=== PATIENT | male | born 1940 | race Caucasian/White ===

== ENCOUNTER 2017-06-16 13:05 | Emergency (ER) | payer MEDICARE, OTHER ==
[~2017-06-16 13:05] MED LIST: Iopamidol 370 76% 100 ML VIAL ONE
[2017-06-16 14:19] LABS: Hemoglobin 14.3 g/dL (14.0-18.0); Mean Corpuscular HGB CONC 33.2 g/dL (32.0-36.0); Mean Corpuscular Hemoglobin 31.3 pg (27.0-31.0); Mean Corpuscular Volume 94.5 fl (80.0-94.0); Mean Platelet Volume 7.7 fL (7.4-10.4); Platelet Count 229 thou/uL (130-400); RBC Distribution Width 11.7 % (11.5-14.5); Red Blood Cell (RBC) Count 4.55 mill/uL (4.70-6.10); White Blood Cell (WBC) Count 6.8 thou/uL (4.8-10.8)
[2017-06-16 14:26] LABS: MDiff Complete? YES; Manual Diff?? YES
[2017-06-16 14:27] LABS: ALT (SGPT) 14 U/L (8-55); AST (SGOT) 21 U/L (5-34); Albumin 4.1 g/dL (3.4-4.8); Alkaline Phosphatase 86 U/L (40-150); Anion Gap 16 mmol/L (10-20); Anisocytosis SLIGHT = 6-15 cells (100X) (0-5/hpf); BUN (Urea Nitrogen) 21 mg/dL (8.4-25.7); Band 2 % (5-11); Bilirubin, Total 0.5 mg/dL (0.2-1.2); Calc. Creatinine Clearance 0 mL/min (70-130); Calcium 9.7 mg/dL (7.8-10.44); Carbon Dioxide 22 mmol/L (23-31); Chloride 104 mmol/L (98-107); Eosinophils 2 % (0-10); Estimated GFR-MDRD 73; Globulin 3.3 g/dL (2.4-3.5); Glucose 90 mg/dL (83-110); Lymphocytes 12 % (21-51); Monocytes 11 % (0-10); Neutrophil 73 % (42-75); PLT Morphology Comment Appears Adequate; Potassium 4.4 mmol/L (3.5-5.1); Protein, Total 7.4 g/dL (5.8-8.1); Sodium 138 mmol/L (136-145)
[2017-06-16 14:48] LABS: Bilirubin Negative (Negative); Blood, Urine Negative (Negative); Clarity Clear (Clear); Glucose, Urine (Dipstick) Negative (Negative); Leukocyte Negative (Negative); Nitrite Negative (Negative); Protein, Urine (Dipstick) Negative (Neg-Trace); Urobilinogen 0.2 mg/dL (0.2-1.0)
[2017-06-16 14:50] LABS: Specific Gravity, Urine 1.003 (1.002-1.036)
--- NOTE | 2017-06-16 15:08 | CT ---
CT OF THE ABDOMEN AND PELVIS WITH IV CONTRAST: INDICATION: Left lower quadrant abdominal pain. COMPARISON: Prior CTA of the chest and abdomen dated 05/17/16. 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 There is a large hiatal hernia. There is bibasilar atelectasis. There are calcified granuloma involving the spleen. There is a 3.6 cm cyst involving the inferior pole of the left kidney. Adrenal glands and pancreas are unremarkable. There is wall thickening and pericolonic inflammatory stranding involving the distal descending colon . No drainable fluid collection is grossly evident. No free air is evident. The prostate is enlarg ed. The rectum and perirectal soft tissues are unremarkable. No definite acute osseous abnormality is evident. There is scattered degenerative change. IMPRESSION: 1. Findings suspicious for acute colonic diverticulitis of the descending colon without evidence of gross complication. Recommend appropriate colon screening after abatement of the patient's current c linical symptoms. 2. Left renal cyst. 3. Findings of prior granulomatous disease. 4. Large hiatal hernia. 5. Other chronic findings as above. POS: [facility]
== END 2017-06-16 15:15 | disposition home or self-care (01) ==
LOC: MADERS 13:05
DX: K57.92 Diverticulitis of intestine, part unspecified, without perforation or abscess without bleeding (principal); R35.0 Frequency of micturition; E03.9 Hypothyroidism, unspecified; F32.9 Major depressive disorder, single episode, unspecified; I49.9 Cardiac arrhythmia, unspecified
CPT/HCPCS: 74177; 80053; 81003; 85025

== ENCOUNTER 2017-06-23 12:25 | Outpatient (CLI) | payer MEDICARE, OTHER ==
[2017-06-23 13:01] LABS: ALT (SGPT) 20 U/L (8-55); AST (SGOT) 28 U/L (5-34); Albumin 4.1 g/dL (3.4-4.8); Alkaline Phosphatase 69 U/L (40-150); Anion Gap 15 mmol/L (10-20); BUN (Urea Nitrogen) 16 mg/dL (8.4-25.7); Bilirubin, Total 0.3 mg/dL (0.2-1.2); Calc. Creatinine Clearance 0 mL/min (70-130); Calcium 9.9 mg/dL (7.8-10.44); Carbon Dioxide 24 mmol/L (23-31); Chloride 107 mmol/L (98-107); Estimated GFR-MDRD 75; Globulin 3.2 g/dL (2.4-3.5); Glucose 95 mg/dL (83-110); Potassium 4.4 mmol/L (3.5-5.1); Protein, Total 7.3 g/dL (5.8-8.1); Sodium 142 mmol/L (136-145)
[2017-06-23 13:12] LABS: Band 1 % (5-11); Eosinophils 1 % (0-10); Hemoglobin 15.2 g/dL (14.0-18.0); Lymphocytes 18 % (21-51); MDiff Complete? YES; Mean Corpuscular HGB CONC 32.5 g/dL (32.0-36.0); Mean Corpuscular Hemoglobin 30.7 pg (27.0-31.0); Mean Corpuscular Volume 94.4 fl (80.0-94.0); Mean Platelet Volume 7.3 fL (7.4-10.4); Monocytes 3 % (0-10); Neutrophil 77 % (42-75); PLT Morphology Comment Appears Adequate; Platelet Count 306 thou/uL (130-400); RBC Distribution Width 11.4 % (11.5-14.5); Red Blood Cell (RBC) Count 4.95 mill/uL (4.70-6.10)
--- NOTE | 2017-06-23 14:02 | RAD ---
RIGHT FOOT 3 VIEWS: HISTORY: Foot pain. FINDINGS: There are some arthritic changes of the 1st metatarsal phalangeal joint. Some minimal ossification i s seen at the Achilles tendon insertion. There are no signs of fracture or other findings. IMPRESSION: No acute findings. POS: [facility]
[2017-06-23 17:54] LABS: Free T4 (Free Thyroxine) 1.37 ng/dL (0.70-1.48)
[2017-06-23 17:55] LABS: PSA-Symptomatic (DIAGNOSTIC) 4.17 ng/mL (0-4.0)
== END 2017-06-23 12:26 | disposition home or self-care (01) ==
LOC: MADLABBHPM 12:25
PROVIDERS: ATTEND Family Medicine
DX: M79.671 Pain in right foot (principal); E03.8 Other specified hypothyroidism; K57.20 Diverticulitis of large intestine with perforation and abscess without bleeding; N40.1 Benign prostatic hyperplasia with lower urinary tract symptoms
CPT/HCPCS: 36415; 80050; 84153; 84439

== ENCOUNTER 2019-05-12 13:51 | Emergency (ER) | payer MEDICARE ==
[~2019-05-12 13:51] MED LIST changes: -Iopamidol 370 76% 100 ML VIAL ONE; +Sodium Chloride Irrig Solution 250 ML BOT ONE
[2019-05-12] MEDS ORDERED: Lidocaine 1% (PF) 30 ML VIAL ONE (14:14)
[2019-05-12] MEDS ORDERED: Lidocaine 1% 20 ML MDV ONE (14:17)
[2019-05-12] MEDS ORDERED: Lidocaine 1% w/Epinephrine 1:100K 20 ML VIAL ONE (14:19)
--- NOTE | 2019-05-12 14:31 | RAD ---
EXAM: 3 views of the left middle finger HISTORY: Finger pain after injury COMPARISON: None FINDINGS: There is no evidence of acute fracture or dislocation. Mild distal soft tissue swelling is seen. No degenerative changes are present. No radiopaque foreign body is seen. IMPRESSION: No evidence of acute osseous abnormality.
[2019-05-12] MEDS ORDERED: Bacitracin 1 PK ONE (15:15)
== END 2019-05-12 15:30 | disposition home or self-care (01) ==
LOC: MADERS 13:51
DX: S61.213A Laceration without foreign body of left middle finger without damage to nail, initial encounter (principal); E03.9 Hypothyroidism, unspecified; F32.9 Major depressive disorder, single episode, unspecified; I47.1 Supraventricular tachycardia; Z79.82 Long term (current) use of aspirin; Z79.899 Other long term (current) drug therapy; W20.8XXA Other cause of strike by thrown, projected or falling object, initial encounter
CPT/HCPCS: 12001; J2001

== ENCOUNTER 2020-02-06 12:58 | Emergency (ER) | payer MEDICARE ==
[2020-02-06 13:41] LABS: #Basophils 0.1 thou/uL (0.0-0.2); #Eosinphils 0.1 thou/uL (0.0-0.7); #Lymphocytes 1.4 thou/uL (1.20-3.40); #Monocytes 0.6 thou/uL (0.11-0.59); #Neutrophils 4.5 thou/uL (1.40-6.50); %Basophils 1.1 % (0.0-1.0); %Eosinophils 1.2 % (0.0-10.0); %Lymphocytes 20.9 % (21.0-51.0); %Monocytes 8.6 % (0.0-10.0); %Neutrophils 68.2 % (42.0-75.0); Hemoglobin 13.7 g/dL (14.0-18.0); Mean Corpuscular Hemoglobin 28.9 pg (27.0-31.0); Mean Corpuscular Volume 90.3 fL (78.0-98.0); Mean Platelet Volume 7.4 fL (7.4-10.4); Platelet Count 283 thou/uL (130-400); Prothrombin Time 12.8 sec (12.0-14.7); RBC Distribution Width 12.4 % (11.5-14.5); Red Blood Cell (RBC) Count 4.76 mill/uL (4.70-6.10); White Blood Cell (WBC) Count 6.6 thou/uL (4.8-10.8)
[2020-02-06 13:42] LABS: PTT 35.2 sec (22.9-36.1)
--- NOTE | 2020-02-06 13:45 | CT ---
CT Cervical Spine WO Con Indication: History of trauma to the neck and head with neck pain COMPARISON: CT of the cervical spine dated May 10, 2013 FINDINGS: Fracture: None. Spinal alignment: No acute malalignment. Craniocervical junction: Within normal limits. Vertebral body heights: Maintained. Cervical spine degenerative change: There is stable postsurgical change of an ACDF of C4-C6. There is solid osseous incorporation of the interbody bone graft. There is ankylosis of the right facet complexes from C2 through C6. There is ankylosis of the facet complexes on the left from C3 through C 5. There is advanced adjacent segment degeneration at C7-T1. Lung apices: Clear. IMPRESSION: 1. No acute fracture subluxation demonstrated. 2. Postoperative cervical spine with moderate to severe multilevel cervical spondylosis.
[2020-02-06 13:50] LABS: ALT (SGPT) 15 U/L (8-55); AST (SGOT) 23 U/L (5-34); Albumin 4.2 g/dL (3.4-4.8); Alkaline Phosphatase 86 U/L (40-110); Anion Gap 17 mmol/L (10-20); BUN (Urea Nitrogen) 15 mg/dL (8.4-25.7); Bilirubin, Total 0.3 mg/dL (0.2-1.2); Calc. Creatinine Clearance 0 mL/min (70-130); Calcium 9.8 mg/dL (7.8-10.44); Carbon Dioxide 25 mmol/L (23-31); Chloride 101 mmol/L (98-107); Estimated GFR-MDRD 73; Globulin 3.5 g/dL (2.4-3.5); Glucose 87 mg/dL (83-110); Potassium 4.2 mmol/L (3.5-5.1); Protein, Total 7.7 g/dL (5.8-8.1); Sodium 139 mmol/L (136-145)
--- NOTE | 2020-02-06 14:14 | CT ---
CT BRAIN: Comparison: 10-21-13 History: Blunt head trauma with headache. Technique: Multiple contiguous axial images were obtained in a CT of the brain without contrast. Sagi ttal and coronal reformats were performed. FINDINGS: Cerebral atrophy is seen. No large confluent infarction is seen. There is no evidence of hydrocephalu s, intracranial hemorrhage, or extraaxial fluid collection. The calvarium and overlying soft tissues are unremarkable. The visualized paranasal sinuses and masto id air cells are well aerated. IMPRESSION: No evidence of acute intracranial abnormality. POS: [facility]
== END 2020-02-06 15:00 | disposition home or self-care (01) ==
LOC: MADERS 12:58
DX: S13.9XXA Sprain of joints and ligaments of unspecified parts of neck, initial encounter (principal); S16.1XXA Strain of muscle, fascia and tendon at neck level, initial encounter; S00.93XA Contusion of unspecified part of head, initial encounter; I47.1 Supraventricular tachycardia; E03.9 Hypothyroidism, unspecified; F32.9 Major depressive disorder, single episode, unspecified; Z79.82 Long term (current) use of aspirin; Z79.899 Other long term (current) drug therapy; W20.8XXA Other cause of strike by thrown, projected or falling object, initial encounter
CPT/HCPCS: 70450; 72125; 80053; 84443; 85025; 85610; 85730

== ENCOUNTER 2022-12-05 13:54 | Outpatient (CLI) | payer MEDICARE | END 2022-12-05 13:55 | disposition home or self-care (01) | LOC: MADRAD 13:54 | PROVIDERS: ATTEND Internal Medicine Cardiovascular Disease | DX: I50.32 Chronic diastolic (congestive) heart failure (principal) | CPT/HCPCS: 71046 ==

== ENCOUNTER 2023-05-20 10:44 | Inpatient (IN) | payer MEDICARE ==
[2023-05-20 12:55] VITALS: BMI 21.2
[2023-05-20] MEDS ORDERED: FLU VACC QS2023(65UP)/MF59C/PF 60 MCG/0.5 ML SYRINGE IM ONE (13:15)
[2023-05-20] MEDS ORDERED: Benzonatate 100 MG CAP PO PRN (20:13)
[2023-05-20] MEDS ORDERED: cloNIDine 0.1 MG TAB PO PRN (20:13)
[2023-05-20] MEDS ORDERED: Phenol 177 ML BOT PO PRN (20:13)
[2023-05-20] MEDS: Melatonin 3 MG TAB PO PRN (20:34)
[2023-05-20] MEDS: Heparin 5,000 UNITS/ML VIAL SC SCH (20:34)
[2023-05-21] MEDS: ALPRAZolam 0.25 MG TAB PO PRN ×2 (02:04→20:07)
[2023-05-21] MEDS: Levothyroxine Sodium 75 MCG TAB PO SCH (05:03)
[2023-05-21 05:39] LABS: ALT (SGPT) 84 U/L (8-55); AST (SGOT) 90 U/L (5-34); Albumin 4.1 g/dL (3.4-4.8); Alkaline Phosphatase 69 U/L (40-110); Anion Gap 16 mmol/L (10-20); BUN (Urea Nitrogen) 13 mg/dL (8.4-25.7); Bilirubin, Total 0.7 mg/dL (0.2-1.2); CK (CPK) 427 U/L (30-200); Calc. Creatinine Clearance 57 mL/min (70-130); Calcium 10.3 mg/dL (7.8-10.44); Carbon Dioxide 20 mmol/L (23-31); Chloride 108 mmol/L (98-107); Estimated GFR 78; Globulin 3.2 g/dL (2.4-3.5); Glucose 108 mg/dL (83-110); Potassium 3.6 mmol/L (3.5-5.1); Protein, Total 7.3 g/dL (5.8-8.1); Sodium 140 mmol/L (136-145)
[2023-05-21] MEDS ORDERED: Amlodipine 5 MG TAB PO SCH ×2 (09:00→11:00)
[2023-05-21] MEDS ORDERED: Furosemide 20 MG TAB PO SCH (09:00)
[2023-05-21] MEDS ORDERED: Amiodarone 200 MG TAB PO SCH ×2 (09:00→11:00)
[2023-05-21] MEDS: Potassium Chloride 10 MEQ TAB PO SCH (09:14)
[2023-05-21] MEDS: Heparin 5,000 UNITS/ML VIAL SC SCH ×2 (09:14→16:35)
[2023-05-21] MEDS: Ascorbic Acid 500 mg Chewable Tablet PO SCH (09:14)
[2023-05-21] MEDS: Losartan 25 MG TAB PO SCH (09:15)
[2023-05-21] MEDS: Sertraline 100 MG TAB PO SCH (09:15)
[2023-05-21] MEDS: Zinc Sulfate 220 MG CAP PO SCH (09:15)
[2023-05-21] MEDS: Acetaminophen 325 MG TAB PO PRN (12:11)
[2023-05-21] MEDS: Senokot S 8.6-50 MG TAB PO PRN (12:11)
[2023-05-21] MEDS: Apixaban 5 MG TAB PO SCH (20:07)
[2023-05-21] MEDS: Amiodarone 200 MG TAB PO SCH (20:07)
[2023-05-21] MEDS: Melatonin 3 MG TAB PO PRN (20:12)
[2023-05-22] MEDS: Levothyroxine Sodium 75 MCG TAB PO SCH (05:38)
[2023-05-22] MEDS: Sertraline 100 MG TAB PO SCH (08:22)
[2023-05-22] MEDS: Ascorbic Acid 500 mg Chewable Tablet PO SCH (08:22)
[2023-05-22] MEDS: Amiodarone 200 MG TAB PO SCH ×2 (08:22→20:57)
[2023-05-22] MEDS: Losartan 25 MG TAB PO SCH (08:22)
[2023-05-22] MEDS: Amlodipine 5 MG TAB PO SCH (08:22)
[2023-05-22] MEDS: Apixaban 5 MG TAB PO SCH ×2 (08:22→20:57)
[2023-05-22] MEDS: Potassium Chloride 10 MEQ TAB PO SCH (08:22)
[2023-05-22] MEDS: Zinc Sulfate 220 MG CAP PO SCH (08:23)
[2023-05-22] MEDS ORDERED: Amiodarone 200 MG TAB PO SCH (09:00)
[2023-05-22] MEDS: Senokot S 8.6-50 MG TAB PO PRN (10:06)
[2023-05-22] MEDS: Acetaminophen 325 MG TAB PO PRN ×3 (10:06→20:57)
[2023-05-22] MEDS: ALPRAZolam 0.25 MG TAB PO PRN (16:02)
[2023-05-22] MEDS: Melatonin 3 MG TAB PO PRN (20:58)
[2023-05-23] MEDS: Levothyroxine Sodium 75 MCG TAB PO SCH (05:37)
[2023-05-23] MEDS: Losartan 25 MG TAB PO SCH (09:50)
[2023-05-23] MEDS: Ascorbic Acid 500 mg Chewable Tablet PO SCH (09:51)
[2023-05-23] MEDS: Amiodarone 200 MG TAB PO SCH ×2 (09:52→21:15)
[2023-05-23] MEDS: Amlodipine 5 MG TAB PO SCH (09:52)
[2023-05-23] MEDS: Zinc Sulfate 220 MG CAP PO SCH (09:52)
[2023-05-23] MEDS: Sertraline 100 MG TAB PO SCH (09:52)
[2023-05-23] MEDS: Potassium Chloride 10 MEQ TAB PO SCH (09:52)
[2023-05-23] MEDS: Apixaban 5 MG TAB PO SCH ×2 (09:53→21:15)
[2023-05-23] MEDS: Guaifenesin DM 100-10/5 ML UDCUP PO PRN ×2 (09:59→21:20)
[2023-05-23] MEDS ORDERED: ALPRAZolam 0.25 MG TAB PO PRN (15:12)
[2023-05-23] MEDS: Acetaminophen 325 MG TAB PO PRN ×2 (15:17→21:16)
[2023-05-23] MEDS ORDERED: Albuterol 2.5 MG (3 mL) NEB NEB PRN (18:58)
[2023-05-23] MEDS: Melatonin 3 MG TAB PO PRN (21:16)
[2023-05-23] MEDS: Lantiseptic Ointment 130 GM JAR TOP PRN (21:37)
[2023-05-24] MEDS: Levothyroxine Sodium 75 MCG TAB PO SCH (05:34)
[2023-05-24] MEDS: Losartan 25 MG TAB PO SCH (08:32)
[2023-05-24] MEDS: Amlodipine 5 MG TAB PO SCH (08:32)
[2023-05-24] MEDS: Amiodarone 200 MG TAB PO SCH ×2 (08:33→20:38)
[2023-05-24] MEDS: Apixaban 5 MG TAB PO SCH ×2 (08:33→20:39)
[2023-05-24] MEDS: Sertraline 100 MG TAB PO SCH (08:33)
[2023-05-24] MEDS: Potassium Chloride 10 MEQ TAB PO SCH (08:33)
[2023-05-24] MEDS: Zinc Sulfate 220 MG CAP PO SCH (08:33)
[2023-05-24] MEDS: Ascorbic Acid 500 mg Chewable Tablet PO SCH (08:33)
[2023-05-24] MEDS: Calcium Carbonate 500 MG ChewTAB PO PRN (15:06)
[2023-05-24] MEDS: Melatonin 3 MG TAB PO PRN (20:39)
[2023-05-24] MEDS: Acetaminophen 325 MG TAB PO PRN (20:39)
[2023-05-25] MEDS: Levothyroxine Sodium 75 MCG TAB PO SCH (05:04)
[2023-05-25 05:16] LABS: Hematocrit 38.1 % (42.0-52.0); Hemoglobin 12.8 g/dL (14.0-18.0); Platelet Count 308 10x3/uL (130-400)
[2023-05-25] MEDS: Losartan 25 MG TAB PO SCH (08:18)
[2023-05-25] MEDS: Zinc Sulfate 220 MG CAP PO SCH (08:19)
[2023-05-25] MEDS: Amlodipine 5 MG TAB PO SCH (08:19)
[2023-05-25] MEDS: Ascorbic Acid 500 mg Chewable Tablet PO SCH (08:19)
[2023-05-25] MEDS: Apixaban 5 MG TAB PO SCH ×2 (08:19→20:36)
[2023-05-25] MEDS: Potassium Chloride 10 MEQ TAB PO SCH (08:19)
[2023-05-25] MEDS: Amiodarone 200 MG TAB PO SCH ×2 (08:19→20:36)
[2023-05-25] MEDS: Sertraline 100 MG TAB PO SCH (08:19)
[2023-05-25] MEDS: Melatonin 3 MG TAB PO PRN (20:36)
[2023-05-25] MEDS: Acetaminophen 325 MG TAB PO PRN (20:36)
[2023-05-26] MEDS: Levothyroxine Sodium 75 MCG TAB PO SCH (05:53)
[2023-05-26] MEDS: Apixaban 5 MG TAB PO SCH ×2 (08:21→20:15)
[2023-05-26] MEDS: Losartan 25 MG TAB PO SCH (08:21)
[2023-05-26] MEDS: Zinc Sulfate 220 MG CAP PO SCH (08:21)
[2023-05-26] MEDS: Ascorbic Acid 500 mg Chewable Tablet PO SCH (08:21)
[2023-05-26] MEDS: Sertraline 100 MG TAB PO SCH (08:21)
[2023-05-26] MEDS: Potassium Chloride 10 MEQ TAB PO SCH (08:21)
[2023-05-26] MEDS: Amiodarone 200 MG TAB PO SCH ×2 (08:21→20:15)
[2023-05-26] MEDS: Amlodipine 5 MG TAB PO SCH (08:22)
[2023-05-26] MEDS: Lantiseptic Ointment 130 GM JAR TOP PRN (08:26)
[2023-05-26] MEDS: Senokot S 8.6-50 MG TAB PO PRN (08:28)
[2023-05-26] MEDS ORDERED: Artificial Tear Sol 15 ML BOT EA EYE PRN (08:58)
[2023-05-26] MEDS: Melatonin 3 MG TAB PO PRN (20:37)
[2023-05-27] MEDS: Levothyroxine Sodium 75 MCG TAB PO SCH (05:14)
[2023-05-27] MEDS: Losartan 25 MG TAB PO SCH (08:07)
[2023-05-27] MEDS: Potassium Chloride 10 MEQ TAB PO SCH (08:08)
[2023-05-27] MEDS: Amiodarone 200 MG TAB PO SCH ×2 (08:08→20:00)
[2023-05-27] MEDS: Sertraline 100 MG TAB PO SCH (08:08)
[2023-05-27] MEDS: Zinc Sulfate 220 MG CAP PO SCH (08:08)
[2023-05-27] MEDS: Amlodipine 5 MG TAB PO SCH (08:08)
[2023-05-27] MEDS: Ascorbic Acid 500 mg Chewable Tablet PO SCH (08:08)
[2023-05-27] MEDS: Apixaban 5 MG TAB PO SCH ×2 (08:09→20:00)
[2023-05-27] MEDS: Senokot S 8.6-50 MG TAB PO PRN (15:34)
[2023-05-27] MEDS: Melatonin 3 MG TAB PO PRN (20:00)
[2023-05-28] MEDS: Levothyroxine Sodium 75 MCG TAB PO SCH (05:10)
[2023-05-28] MEDS: Losartan 25 MG TAB PO SCH (08:10)
[2023-05-28] MEDS: Amlodipine 5 MG TAB PO SCH (08:10)
[2023-05-28] MEDS: Amiodarone 200 MG TAB PO SCH ×2 (08:10→20:49)
[2023-05-28] MEDS: Apixaban 5 MG TAB PO SCH ×2 (08:10→20:49)
[2023-05-28] MEDS: Potassium Chloride 10 MEQ TAB PO SCH (08:10)
[2023-05-28] MEDS: Zinc Sulfate 220 MG CAP PO SCH (08:10)
[2023-05-28] MEDS: Ascorbic Acid 500 mg Chewable Tablet PO SCH (08:10)
[2023-05-28] MEDS: Sertraline 100 MG TAB PO SCH (08:10)
[2023-05-28] MEDS ORDERED: Milk Of Magnesia 30 ML UDCUP PO PRN (09:49)
[2023-05-28] MEDS: Melatonin 3 MG TAB PO PRN (20:49)
[2023-05-29] MEDS: Levothyroxine Sodium 75 MCG TAB PO SCH (05:27)
[2023-05-29] MEDS: Sertraline 100 MG TAB PO SCH (08:22)
[2023-05-29] MEDS: Amiodarone 200 MG TAB PO SCH ×2 (08:22→20:27)
[2023-05-29] MEDS: Zinc Sulfate 220 MG CAP PO SCH (08:23)
[2023-05-29] MEDS: Ascorbic Acid 500 mg Chewable Tablet PO SCH (08:23)
[2023-05-29] MEDS: Potassium Chloride 10 MEQ TAB PO SCH (08:23)
[2023-05-29] MEDS: Polyethylene Glycol 3350 17 GM Packet PO SCH (08:23)
[2023-05-29] MEDS: Losartan 25 MG TAB PO SCH (08:23)
[2023-05-29] MEDS: Amlodipine 5 MG TAB PO SCH (08:24)
[2023-05-29] MEDS: Apixaban 5 MG TAB PO SCH ×2 (08:24→20:27)
[2023-05-30] MEDS: Levothyroxine Sodium 75 MCG TAB PO SCH (05:12)
[2023-05-30] MEDS: Ascorbic Acid 500 mg Chewable Tablet PO SCH (08:14)
[2023-05-30] MEDS: Potassium Chloride 10 MEQ TAB PO SCH (08:14)
[2023-05-30] MEDS: Losartan 25 MG TAB PO SCH (08:14)
[2023-05-30] MEDS: Zinc Sulfate 220 MG CAP PO SCH (08:14)
[2023-05-30] MEDS: Sertraline 100 MG TAB PO SCH (08:14)
[2023-05-30] MEDS: Amiodarone 200 MG TAB PO SCH ×2 (08:15→20:27)
[2023-05-30] MEDS: Polyethylene Glycol 3350 17 GM Packet PO SCH (08:15)
[2023-05-30] MEDS: Amlodipine 5 MG TAB PO SCH (08:15)
[2023-05-30] MEDS: Apixaban 5 MG TAB PO SCH ×2 (08:15→20:27)
[2023-05-30] MEDS: Senokot S 8.6-50 MG TAB PO PRN (17:05)
[2023-05-30] MEDS: Acetaminophen 325 MG TAB PO PRN (23:27)
[2023-05-30] MEDS: Melatonin 3 MG TAB PO PRN (23:27)
[2023-05-31] MEDS: Levothyroxine Sodium 75 MCG TAB PO SCH (05:31)
[2023-05-31] MEDS: Potassium Chloride 10 MEQ TAB PO SCH (08:36)
[2023-05-31] MEDS: Losartan 25 MG TAB PO SCH (08:36)
[2023-05-31] MEDS: Zinc Sulfate 220 MG CAP PO SCH (08:36)
[2023-05-31] MEDS: Apixaban 5 MG TAB PO SCH ×2 (08:36→19:59)
[2023-05-31] MEDS: Polyethylene Glycol 3350 17 GM Packet PO SCH (08:36)
[2023-05-31] MEDS: Ascorbic Acid 500 mg Chewable Tablet PO SCH (08:36)
[2023-05-31] MEDS: Amlodipine 5 MG TAB PO SCH (08:37)
[2023-05-31] MEDS: Sertraline 100 MG TAB PO SCH (08:37)
[2023-05-31] MEDS: Amiodarone 200 MG TAB PO SCH ×2 (08:37→19:59)
[2023-05-31] MEDS: Acetaminophen 325 MG TAB PO PRN ×2 (08:40→19:57)
[2023-05-31] MEDS: Melatonin 3 MG TAB PO PRN (19:57)
[2023-06-01] MEDS: Levothyroxine Sodium 75 MCG TAB PO SCH (05:40)
[2023-06-01 05:42] LABS: Hematocrit 42.4 % (42.0-52.0); Hemoglobin 14.2 g/dL (14.0-18.0); Platelet Count 310 10x3/uL (130-400)
[2023-06-01] MEDS: Polyethylene Glycol 3350 17 GM Packet PO SCH (08:52)
[2023-06-01] MEDS: Amlodipine 5 MG TAB PO SCH (08:54)
[2023-06-01] MEDS: Ascorbic Acid 500 mg Chewable Tablet PO SCH (08:54)
[2023-06-01] MEDS: Losartan 25 MG TAB PO SCH (08:54)
[2023-06-01] MEDS: Sertraline 100 MG TAB PO SCH (08:54)
[2023-06-01] MEDS: Senokot S 8.6-50 MG TAB PO PRN (08:54)
[2023-06-01] MEDS: Zinc Sulfate 220 MG CAP PO SCH (08:54)
[2023-06-01] MEDS: Apixaban 5 MG TAB PO SCH ×2 (08:55→20:02)
[2023-06-01] MEDS: Amiodarone 200 MG TAB PO SCH ×2 (08:55→20:02)
[2023-06-01] MEDS: Potassium Chloride 10 MEQ TAB PO SCH (08:55)
[2023-06-01] MEDS: Acetaminophen 325 MG TAB PO PRN (19:28)
[2023-06-01] MEDS: Calcium Carbonate 500 MG ChewTAB PO PRN (20:05)
[2023-06-01] MEDS: Melatonin 3 MG TAB PO PRN (20:28)
[2023-06-02] MEDS: Levothyroxine Sodium 75 MCG TAB PO SCH (04:55)
[2023-06-02] MEDS: Losartan 25 MG TAB PO SCH (08:25)
[2023-06-02] MEDS: Zinc Sulfate 220 MG CAP PO SCH (08:25)
[2023-06-02] MEDS: Amiodarone 200 MG TAB PO SCH ×2 (08:25→20:00)
[2023-06-02] MEDS: Ascorbic Acid 500 mg Chewable Tablet PO SCH (08:25)
[2023-06-02] MEDS: Amlodipine 5 MG TAB PO SCH (08:25)
[2023-06-02] MEDS: Potassium Chloride 10 MEQ TAB PO SCH (08:25)
[2023-06-02] MEDS: Apixaban 5 MG TAB PO SCH ×2 (08:26→20:00)
[2023-06-02] MEDS: Polyethylene Glycol 3350 17 GM Packet PO SCH (08:26)
[2023-06-02] MEDS: Sertraline 100 MG TAB PO SCH (08:26)
[2023-06-02] MEDS: Acetaminophen 325 MG TAB PO PRN ×2 (08:26→20:00)
[2023-06-02] MEDS: Melatonin 3 MG TAB PO PRN (20:00)
[2023-06-03] MEDS: Levothyroxine Sodium 75 MCG TAB PO SCH (05:52)
[2023-06-03] MEDS: Polyethylene Glycol 3350 17 GM Packet PO SCH (08:20)
[2023-06-03] MEDS: Amiodarone 200 MG TAB PO SCH (08:21)
[2023-06-03] MEDS: Zinc Sulfate 220 MG CAP PO SCH (08:21)
[2023-06-03] MEDS: Ascorbic Acid 500 mg Chewable Tablet PO SCH (08:21)
[2023-06-03] MEDS: Potassium Chloride 10 MEQ TAB PO SCH (08:21)
[2023-06-03] MEDS: Losartan 25 MG TAB PO SCH (08:21)
[2023-06-03] MEDS: Amlodipine 5 MG TAB PO SCH (08:21)
[2023-06-03] MEDS: Apixaban 5 MG TAB PO SCH (08:22)
[2023-06-03] MEDS: Sertraline 100 MG TAB PO SCH (08:22)
[2023-06-03 09:34] VITALS: BP 132/76; TEMP 97.4
== END 2023-06-03 14:15 | disposition home health service (06) | DRG 91 ==
LOC: MADMS 11:41
PROVIDERS: ADMIT Family Medicine; ATTEND Family Medicine
PROC: 8E0ZXY6 Isolation (ICD-10-PCS; principal; 2023-05-20)
DX: R26.81 Unsteadiness on feet (principal); U07.1 COVID-19; M62.82 Rhabdomyolysis; R53.81 Other malaise; I10 Essential (primary) hypertension; E03.9 Hypothyroidism, unspecified; R29.6 Repeated falls; Z66 Do not resuscitate; I48.91 Unspecified atrial fibrillation; F41.9 Anxiety disorder, unspecified; F32.A Depression, unspecified; K59.00 Constipation, unspecified; Z88.5 Allergy status to narcotic agent; Z88.8 Allergy status to other drugs, medicaments and biological substances; Z79.899 Other long term (current) drug therapy; Z95.0 Presence of cardiac pacemaker; Z98.890 Other specified postprocedural states
CPT/HCPCS: 36415; 71045; 80053; 82550; 85014; 85018; 85049; J1644

== ENCOUNTER 2023-08-04 13:19 | Outpatient (CLI) | payer MEDICARE | END 2023-08-04 13:20 | disposition home or self-care (01) | LOC: MADRAD 13:19 | PROVIDERS: ATTEND Family Medicine | DX: M23.91 Unspecified internal derangement of right knee (principal); M17.11 Unilateral primary osteoarthritis, right knee ==

== ENCOUNTER 2025-04-28 14:16 | Outpatient (CLI) | payer OTHER | END 2025-04-28 14:17 | disposition home or self-care (01) | LOC: MADRAD 14:16 | PROVIDERS: ATTEND Family Medicine | DX: M54.9 Dorsalgia, unspecified (principal); M51.369 Other intervertebral disc degeneration, lumbar region without mention of lumbar back pain or lower extremity pain | CPT/HCPCS: 72110 ==